=== PATIENT | female | born 1980 | race Caucasian/White ===

== ENCOUNTER 2017-05-26 18:16 | Emergency (ER) | payer MEDICAID | END 2017-05-26 20:43 | disposition home or self-care (01) | LOC: D.ER 18:16 | DX: H10.33 Unspecified acute conjunctivitis, bilateral (principal); S05.02XA Injury of conjunctiva and corneal abrasion without foreign body, left eye, initial encounter; S05.01XA Injury of conjunctiva and corneal abrasion without foreign body, right eye, initial encounter; X58.XXXA Exposure to other specified factors, initial encounter; Y93.89 Activity, other specified; Y92.89 Other specified places as the place of occurrence of the external cause ==